=== PATIENT | male | born 1990 | race Caucasian/White ===

== ENCOUNTER 2020-02-15 19:09 | Emergency (ER) | payer BC, MEDICAID ==
[~2020-02-15] VITALS: Ht 170.2 cm; Wt 96.0 kg
[2020-02-15 19:10] VITALS: BP 135/80
== END 2020-02-15 20:39 | disposition left against medical advice (07) ==
LOC: ER 19:09
DX: Z53.21 Procedure and treatment not carried out due to patient leaving prior to being seen by health care provider (principal)

== ENCOUNTER 2020-06-29 16:21 | Emergency (ER) | payer MEDICAID | END 2020-06-29 16:55 | disposition left against medical advice (07) | LOC: ER 16:21 | DX: Z53.21 Procedure and treatment not carried out due to patient leaving prior to being seen by health care provider (principal) ==

== ENCOUNTER 2020-09-12 11:59 | Emergency (ER) | payer MEDICAID | END 2020-09-12 14:01 | disposition left against medical advice (07) | LOC: ER 12:27 | DX: Z53.21 Procedure and treatment not carried out due to patient leaving prior to being seen by health care provider (principal) ==

== ENCOUNTER 2020-11-11 20:17 | Emergency (ER) | payer MEDICAID ==
[~2020-11-11] VITALS: Ht 170.2 cm; Wt 99.1 kg
[2020-11-11 20:25] VITALS: BP 129/77
== END 2020-11-11 21:03 | disposition left against medical advice (07) ==
LOC: ER 20:17
DX: Z53.21 Procedure and treatment not carried out due to patient leaving prior to being seen by health care provider (principal)

== ENCOUNTER 2020-12-07 14:35 | Emergency (ER) | payer MEDICAID ==
[~2020-12-07] VITALS: Ht 170.2 cm; Wt 91.0 kg
[2020-12-07] MEDS ORDERED: ACET-2708 MT (15:19)
[2020-12-07 15:29] VITALS: BP 164/104
== END 2020-12-07 15:30 | disposition home or self-care (01) ==
LOC: ER 15:19
DX: S01.111A Laceration without foreign body of right eyelid and periocular area, initial encounter (principal); W17.89XA Other fall from one level to another, initial encounter; Y93.89 Activity, other specified; Y92.89 Other specified places as the place of occurrence of the external cause; Y99.8 Other external cause status
CPT/HCPCS: 99282

== ENCOUNTER 2021-02-14 08:08 | Emergency (ER) | payer MEDICAID ==
[~2021-02-14] VITALS: Ht 172.7 cm; Wt 85.0 kg
[~2021-02-14 08:08] MED LIST: ACET-2708 MT
[2021-02-14] MEDS ORDERED: LORAZEPAM 2MG/ML CPJ IV ONE (09:00)
[2021-02-14] MEDS ORDERED: SODIUM CHLORIDE 0.9% 1,000 ML IV ONE (09:00)
[2021-02-14 11:30] VITALS: BP 151/89
== END 2021-02-14 12:39 | disposition home or self-care (01) ==
LOC: ER 08:32
DX: S60.512A Abrasion of left hand, initial encounter (principal); S60.511A Abrasion of right hand, initial encounter; R45.4 Irritability and anger; X58.XXXA Exposure to other specified factors, initial encounter; Y93.89 Activity, other specified; Y92.89 Other specified places as the place of occurrence of the external cause; Y99.8 Other external cause status
CPT/HCPCS: 93005; 96361; 96374; 99283; J2060; J7030; Z7610

== ENCOUNTER 2021-11-17 07:52 | Emergency (ER) | payer MEDICAID ==
[~2021-11-17] VITALS: Ht 180.3 cm; Wt 91.0 kg
[2021-11-17 07:55] VITALS: BP 152/84
[2021-11-17] MEDS ORDERED: MORPHINE SULFATE 4 MG/ML CPJ (NOT FOR IM USE) IV STA (08:30)
[2021-11-17] MEDS ORDERED: SODIUM CHLORIDE 0.9% 1,000 ML IV ONE (08:30)
[2021-11-17] MEDS ORDERED: ONDANSETRON HCL 4MG/2ML INJ IV STA (08:30)
[2021-11-17 08:58] LABS: CHLORIDE 106 mEq/L (98-107)
[2021-11-17 09:06] LABS: BASOPHILS % 0.4 % (0.0-2.0); EOSINOPHILS % 5.1 % (0.0-5.0); HEMATOCRIT. 42.3 % (42.0-52.0); HEMOGLOBIN. 14.1 g/dL (14.0-18.0); LYMPHOCYTES % 30.5 % (20.0-50.0); MEAN CORPUSCULAR HEMOGLOBIN 27.7 pg (28.0-32.0); MEAN CORPUSCULAR VOLUME 83.3 fL (80.0-94.0); MEAN PLATELET VOLUME 8.1 fl (7.4-10.4); MONOCYTES % 9.6 % (2.0-8.0); NEUTROPHILS % 54.4 % (40.0-76.0); PLATELET 228 x1000/uL (130-400); RED BLOOD CELL COUNT 5.07 mill/uL (4.7-6.1); RED CELL DISTRIBUTION WIDTH 13.9 % (11.6-14.6)
== END 2021-11-17 11:07 | disposition left against medical advice (07) ==
LOC: ER 07:52
DX: R07.81 Pleurodynia (principal); Z86.16 Personal history of COVID-19; Y04.0XXA Assault by unarmed brawl or fight, initial encounter; Y93.89 Activity, other specified; Y92.89 Other specified places as the place of occurrence of the external cause
CPT/HCPCS: 36415; 71045; 80053; 85025; 93005; 99285; J7030

== ENCOUNTER 2022-08-15 12:55 | Emergency (ER) | payer MEDICAID ==
[~2022-08-15] VITALS: Ht 177.8 cm; Wt 91.0 kg
[2022-08-15 13:18] VITALS: BP 129/85
[2022-08-15] MEDS ORDERED: IBUPROFEN 400MG TABLET PO ONE (13:45)
[2022-08-15] MEDS ORDERED: ACETAMINOPHEN 325MG TABLET PO ONE (13:45)
[2022-08-15] MEDS ORDERED: IBUP-2029 MT (18:36)
[2022-08-15] MEDS ORDERED: HYDR-4001 MT (18:36)
== END 2022-08-15 14:10 | disposition left against medical advice (07) ==
LOC: ER 12:55
DX: S60.512A Abrasion of left hand, initial encounter (principal); S60.511A Abrasion of right hand, initial encounter; M79.632 Pain in left forearm; V17.4XXA Pedal cycle driver injured in collision with fixed or stationary object in traffic accident, initial encounter; Y93.89 Activity, other specified; Y92.488 Other paved roadways as the place of occurrence of the external cause
CPT/HCPCS: 99281

== ENCOUNTER 2022-08-15 16:32 | Emergency (ER) | payer MEDICAID ==
[~2022-08-15] VITALS: Ht 177.8 cm; Wt 93.0 kg
[2022-08-15 16:42] VITALS: BP 143/89
[2022-08-15] MEDS ORDERED: HYDROCODONE/ACETAMINOPHEN 5/325MG TABLET PO ONE (18:30)
[2022-08-15] MEDS ORDERED: IBUP-2029 MT (18:36)
[2022-08-15] MEDS ORDERED: HYDR-4001 MT (18:36)
== END 2022-08-15 19:02 | disposition home or self-care (01) ==
LOC: ER 16:32
DX: S52.125A Nondisplaced fracture of head of left radius, initial encounter for closed fracture (principal); V19.3XXA Pedal cyclist (driver) (passenger) injured in unspecified nontraffic accident, initial encounter; Y93.89 Activity, other specified; Y92.488 Other paved roadways as the place of occurrence of the external cause; Y99.8 Other external cause status
CPT/HCPCS: 29105; 73080; 73130; 99284; A4565

== ENCOUNTER 2022-08-17 12:12 | Emergency (ER) | payer MEDICAID ==
[~2022-08-17] VITALS: Ht 177.8 cm; Wt 91.0 kg
[~2022-08-17 12:12] MED LIST changes: +HYDR-4001 MT; +IBUP-2029 MT
[2022-08-17 12:43] VITALS: BP 140/95
== END 2022-08-17 15:00 | disposition left against medical advice (07) ==
LOC: ER 12:12
DX: Z53.21 Procedure and treatment not carried out due to patient leaving prior to being seen by health care provider (principal)

== ENCOUNTER 2022-12-13 23:39 | Emergency (ER) | payer MEDICAID ==
[~2022-12-13] VITALS: Ht 172.7 cm; Wt 103.0 kg
[2022-12-14] MEDS ORDERED: ASPIRIN 81MG TABLET PO ONE (00:30)
[2022-12-14] MEDS: METOPROLOL TARTRATE 5MG/5ML VIAL IV SCH ×3 (00:35→01:40)
[2022-12-14 00:45] LABS: BASOPHILS % 0.3 % (0.0-2.0); EOSINOPHILS % 2.5 % (0.0-5.0); HEMATOCRIT. 42.5 % (42.0-52.0); LYMPHOCYTES % 36.3 % (20.0-50.0); MEAN CORPUSCULAR HEMOGLOBIN 27.1 pg (28.0-32.0); MEAN PLATELET VOLUME 8.1 fl (7.4-10.4); MONOCYTES % 8.6 % (2.0-8.0); NEUTROPHILS % 52.3 % (40.0-76.0); PLATELET 288 x1000/uL (130-400); RED BLOOD CELL COUNT 5.18 mill/uL (4.7-6.1); RED CELL DISTRIBUTION WIDTH 14.6 % (11.6-14.6)
[2022-12-14 00:51] LABS: CHLORIDE 110 mEq/L (98-107)
[2022-12-14 01:03] LABS: ETHANOL BLOOD < 10 mg/dL (-10)
[2022-12-14 02:00] VITALS: BP 113/74
== END 2022-12-14 03:46 | disposition left against medical advice (07) ==
LOC: ER 12-14 → ENRESERV 12-14 03:29 → ER 12-14 03:46 → CANBEDREQ 12-16 01:59
DX: I48.91 Unspecified atrial fibrillation (principal); F17.200 Nicotine dependence, unspecified, uncomplicated
CPT/HCPCS: 36415; 71045; 80053; 80320; 83880; 84484; 85025; 85379; 96374; 99291; J3490; Z7610; G0480

== ENCOUNTER 2023-02-06 22:28 | Emergency (ER) | payer MEDICAID ==
[~2023-02-06] VITALS: Ht 177.8 cm; Wt 83.3 kg
[2023-02-06 23:16] VITALS: BP 131/81; RESP 15; TEMP 98.7
[2023-02-06 23:19] VITALS: PULSE 108
[2023-02-07] MEDS ORDERED: LIDOCAINE HCL 1% 20ML VIAL (Pyxis) INJ INFIL ONE (01:30)
== END 2023-02-07 01:45 | disposition left against medical advice (07) ==
LOC: ER 22:28
DX: R68.89 Other general symptoms and signs (principal)
CPT/HCPCS: 99281

== ENCOUNTER 2023-02-07 02:49 | Emergency (ER) | payer MEDICAID ==
[2023-02-07 03:23] VITALS: PULSE 99
== END 2023-02-07 05:48 | disposition left against medical advice (07) ==
LOC: ER 02:49
DX: Z53.21 Procedure and treatment not carried out due to patient leaving prior to being seen by health care provider (principal)

== ENCOUNTER 2023-02-07 18:08 | Emergency (ER) | payer MEDICAID ==
[2023-02-07 18:21] VITALS: PULSE 80; RESP 18
== END 2023-02-07 20:19 | disposition left against medical advice (07) ==
LOC: ER 18:08
DX: Z53.21 Procedure and treatment not carried out due to patient leaving prior to being seen by health care provider (principal)
CPT/HCPCS: 99281

== ENCOUNTER 2024-08-13 06:27 | Emergency (ER) | payer MEDICAID ==
[~2024-08-13] VITALS: Ht 180.3 cm; Wt 109.0 kg
[2024-08-13 06:45] VITALS: BP 148/99; PULSE 98; RESP 16; TEMP 36.9; O2SAT 98
== END 2024-08-13 08:03 | disposition left against medical advice (07) ==
LOC: ER 06:27
DX: F20.9 Schizophrenia, unspecified (principal); F31.9 Bipolar disorder, unspecified
CPT/HCPCS: 99283

== ENCOUNTER 2024-11-16 13:30 | Emergency (ER) | payer MEDICAID ==
[~2024-11-16] VITALS: Ht 175.3 cm; Wt 82.0 kg
[2024-11-16 13:35] VITALS: TEMP 36.9; O2SAT 99
[2024-11-16 14:08] VITALS: BP 164/100; PULSE 94; RESP 18; O2SAT 95
== END 2024-11-16 14:18 | disposition left against medical advice (07) ==
LOC: ER 13:30
DX: T42.71XA Poisoning by unspecified antiepileptic and sedative-hypnotic drugs, accidental (unintentional), initial encounter (principal); F31.9 Bipolar disorder, unspecified; Z86.59 Personal history of other mental and behavioral disorders; Y92.9 Unspecified place or not applicable
CPT/HCPCS: 99283

== ENCOUNTER 2025-02-15 21:46 | Emergency (ER) | payer MEDICAID ==
[~2025-02-15] VITALS: Ht 177.8 cm; Wt 110.0 kg
[2025-02-15 21:48] VITALS: O2SAT 97
[2025-02-15 22:05] VITALS: TEMP 36.9
[2025-02-15] MEDS ORDERED: SODIUM CHLORIDE 0.9% 1,000 ML IV ONE (23:00)
[2025-02-15 23:19] LABS: BASOPHILS % 0.2 % (0.0-2.0); EOSINOPHILS % 0.1 % (0.0-5.0); HEMATOCRIT. 40.9 % (42.0-52.0); HEMOGLOBIN. 13.4 g/dL (14.0-18.0); LYMPHOCYTES % 26.3 % (20.0-50.0); MEAN PLATELET VOLUME 7.5 fl (7.4-10.4); MONOCYTES % 9.1 % (2.0-8.0); NEUTROPHILS % 64.3 % (40.0-76.0); PLATELET 253 x1000/uL (130-400); RED BLOOD CELL COUNT 5.20 mill/uL (4.7-6.1); RED CELL DISTRIBUTION WIDTH 15.4 % (11.6-14.6)
[2025-02-15 23:33] LABS: CREATININE 1.0 mg/dL (0.6-1.3)
[2025-02-15 23:34] LABS: ETHANOL BLOOD < 10 mg/dL (<10); UREA NITROGEN BLOOD 7 mg/dL (9-23)
[2025-02-15 23:55] VITALS: BP 137/99; PULSE 94; RESP 15; O2SAT 98
== END 2025-02-15 23:55 | disposition home or self-care (01) ==
LOC: ER 21:46
DX: T45.0X1A Poisoning by antiallergic and antiemetic drugs, accidental (unintentional), initial encounter (principal); F17.200 Nicotine dependence, unspecified, uncomplicated; Z98.890 Other specified postprocedural states; Z79.899 Other long term (current) drug therapy; Y92.9 Unspecified place or not applicable
CPT/HCPCS: 80048; 80307; 80329; 80320; 85025; 36415; 93005; 99284; J7030; A4606; G0480

== ENCOUNTER 2025-03-09 17:27 | Emergency (ER) | payer MEDICAID ==
[~2025-03-09] VITALS: Ht 175.3 cm; Wt 73.0 kg
[2025-03-09 17:28] VITALS: BP 135/92; PULSE 116; RESP 18; TEMP 37; O2SAT 98
== END 2025-03-09 17:57 | disposition left against medical advice (07) ==
LOC: ER 17:27
DX: F20.9 Schizophrenia, unspecified (principal); F41.9 Anxiety disorder, unspecified; Z79.899 Other long term (current) drug therapy
CPT/HCPCS: 99283

== ENCOUNTER 2025-05-25 13:48 | Emergency (ER) | payer MEDICAID ==
[~2025-05-25] VITALS: Ht 177.8 cm; Wt 100.0 kg
[~2025-05-25 13:48] MED LIST changes: +IBUP-1455 MT; -IBUP-2029 MT
[2025-05-25 13:53] VITALS: TEMP 37.2; O2SAT 98
[2025-05-25] MEDS ORDERED: MEBE100T16 MT (14:38)
[2025-05-25 15:01] VITALS: BP 133/92; PULSE 99; RESP 18; O2SAT 97
== END 2025-05-25 15:05 | disposition home or self-care (01) ==
LOC: ER 13:48
DX: B86 Scabies (principal); F20.9 Schizophrenia, unspecified; Z79.899 Other long term (current) drug therapy
CPT/HCPCS: 99283